=== PATIENT | female | born 2000 | race Caucasian/White ===

== ENCOUNTER 2025-02-19 17:19 | Emergency (ER) | payer MEDICAID ==
[~2025-02-19] VITALS: Ht 167.6 cm; Wt 48.9 kg
--- NOTE | 2025-02-19 17:59 | ED.PDOC ---
Back pain HPI HPI Comments PT REPORTS LEFT FOOT PAIN X 2 DAYS AFTER DROPPING A STOOL ON IT. SLIGHT SWELLING AND BRUISING TO FOOT. PT NOTES BEING 10 WEEKS . 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 Family History Family History: Reviewed,noncontributory to illness, Unknown Social History Smoker: Non-Smoker Alcohol: Denies ETOH Use Drugs: Denies Drug Use Lives In: Home Constitutional: denies: chills, diaphoresis, fatigue, fever, malaise, sweats, weakness, others EENTM: denies: blurred vision, double vision, ear bleeding, ear discharge, ear drainage, ear pain, ear ringing, eye pain, eye redness, hearing loss, mouth pain, mouth swelling, nasal discharge, nose bleeding, nose congestion, nose pain, photophobia, tearing, throat pain, throat swelling, voice changes, others Respiratory: denies: cough, hemoptysis, orthopnea, SOB at rest, shortness of breath, SOB with excertion, stridor, wheezing, others Cardiovascular: denies: chest pain, dizzy spells, diaphoresis, Dyspnea on exertion, edema, irregular heart beat, left arm pain, lightheadedness, palpitations, PND, syncope, others Gastrointestinal: denies: abdomen distended, abdominal pain, blood streaked bowels, constipated, diarrhea, dysphagia, difficulty swallowing, hematemesis, melena, nausea, poor appetite, poor fluid intake, rectal bleeding, rectal pain, vomiting, others Genitourinary: denies: abnormal vagina bleeding, burning, dyspareunia, dysuria, flank pain, frequency, hematuria, incontinence, pain, , vagina discharge, urgency, others Neurological: denies: dizziness, fainting, headache, left sided numbness, left sided weakness, numbness, paresthesia, pre-existing deficit, right sided numbness, right sided weakness, seizure, speech problems, tingling, tremors, weakness, others Musculoskeletal: reports: joint pain, joint swelling; denies: back pain, gout, muscle pain, muscle stiffness, neck pain, others Integumetry: denies: bruises, change in color, change in hair/nails, dryness, laceration, lesions, lumps, rash, wounds, others Allergic/Immunocompromised: denies: Difficulty Healing, Frequent Infections, Hives, Itching, others Hematologic/Lymphatic: denies: anemia, blood clots, easy bleeding, easy bruising, swollen glands, others Endocrine: denies: excessive hunger, excessive sweating, excessive thirst, excessive urination, flushing, intolerance to cold, intolerance to heat, unexplained weight gain, unexplained weight loss, others Psychiatric: denies: anxiety, bipolar disorder, depression, hopeless, panic disorder, schizophrenia, sleepless, suicidal, others Physical Exam General Appearance: No Apparent Distress, Normal HEENT: Pharynx Normal Neck: Full Range of Motion, Non-Tender Respiratory: Lungs Clear, No Respiratory Distress, Normal Breath Sounds Cardiovascular: No Edema, No JVD, No Murmur, No Gallop, Normal Peripheral Pulses, Regular Rate/Rhythm Breast Exam: Deferred Gastrointestinal: Non Tender, Soft Genitalia: Deferred Pelvic: Deferred Rectal: Deferred Extremities: Normal capillary refill, Normal inspection, Normal range of motion, Non-tender, No pedal edema Musculoskeletal : Location: Left Extremity Location: Foot Apperance: Normal Neurologic: Alert, No Motor Deficits, Normal Affect, Normal Mood, No Sensory Deficits Cerebellar Function: Normal Reflexes: Normal Skin: Dry, Normal Color, Warm Lymphatic: No Adenopathy Was a procedure done? Was a procedure done?: No Back Pain Differential Dx Differential Diagnosis: Fracture, Musculoskeletal Pain X-Ray, Labs, Meds, VS Vital Signs Date Time Temp Pulse Resp B/P (MAP) Pulse Ox O2 Delivery O2 Flow Rate FiO2 02/19/25 17:39 98.8 115 17 110/58 (75) 97 98.8 Current Medications Medications (Trade) Dose Ordered Sig/Ning Route Start Time Stop Time Status Last Admin Acetaminophen (Tylenol Tablet Or Capsule) 1,000 mg ONCE ONCE PO 02/19/25 18:45 02/19/25 18:46 DC 02/19/25 19:02 X-Ray, Labs, Meds, VS Comment EXAMINATIONS: 3 views of the left foot CLINICAL HISTORY: injury/swelling/pain COMPARISON: None Findings and impression: Comminuted, mildly displaced fracture of the 1st metatarsal diaphysis. No other grossly displaced fractures or dislocations are evident on the provided views. No sizable, radiopaque foreign bodies noted. PATIENT PLACED IN SPLINT CRUTCHES PROVIDED. ADVISED NO WEIGHT-BEARING UNTIL FOLLOW UP WITH [facility]TH[facility]. [id number] TYLENOL NEEDED FOR THE PAIN PER LABELED DOSING INSTRUCTIONS. ADVISED ON RICE. ADVISED TO FOLLOW UP WITH PCP FOR REFERRAL TO [facility] LEAVE SPLINT ON UNTIL FOLLOWING UP WITH [facility]. ER RETURN PRECAUTIONS GIVEN PATIENT INDICATES UNDERSTANDING AGREES WITH DISCHARGE PLAN OF CARE. Time of 1ST Reevaluation: 17:58 Reevaluation 1ST: Unchanged Time of 2ND Reevaluation: 18:44 Reevaluation 2ND: Improved Patient Education/Counseling: Diagnosis, Treatment, Prognosis, Need For Follow Up Family Education/Counseling: No Family Present SEPSIS Sepsis Screen Date sepsis recognized/suspect: Feb 19, 2025 Time Sepsis recognized/suspect: 1729 Recent Procedure: No On Antibiotic Therapy: No Respiratory Rate >20: No Heart Rate >90: No Temp<36 C (96.8 F) or >38.3 C: No SBP <90 or MAP <65 mmHG: No New Acute Mental Status Change: No Is the patient on CPAP, BIPAP,: No Physician Orders L Foot 3 View Xray (02/19/25 17:54) Apply Ice To Affected Area (02/19/25 18:03) Splints (02/19/25 ) Crutches And Crutch Training (02/19/25 18:31) Vital Signs Date Time Temp Pulse Resp B/P (MAP) Pulse Ox O2 Delivery O2 Flow Rate FiO2 02/19/25 17:39 98.8 115 17 110/58 (75) 97 98.8 Medications Medications Dose Ordered Sig/Ning Route Start Time Stop Time Status Last Admin Dose Admin Acetaminophen 1,000 mg ONCE ONCE PO 02/19/25 18:45 02/19/25 18:46 DC 02/19/25 19:02 Departure 1 Departure Time of Disposition: 18:43 Impression: Primary Impression: Fracture of first metatarsal bone of left foot Qualified Codes: S92.312A - Displaced fracture of first metatarsal bone, left foot, initial encounter for closed fracture Disposition: 01 HOME / SELF CARE / HOMELESS Condition: Stable Discharged With: Self Critical Care Note Critical Care Time?: No Stability Stability form required: OLIVIA Coronado Feb 19, 2025 17:58
[2025-02-19] MEDS: IBUPROFEN 600 MG TAB PO ONE (18:19)
--- NOTE | 2025-02-19 18:40 | DVH ---
EXAMINATIONS: 3 views of the left foot CLINICAL HISTORY: injury/swelling/pain COMPARISON: None Findings and impression: Comminuted, mildly displaced fracture of the 1st metatarsal diaphysis. No other grossly displaced fractures or dislocations are evident on the provided views. No sizable, r adiopaque foreign bodies noted.
[2025-02-19] MEDS: ACETAMINOPHEN 500 MG TAB or CAP PO ONE (19:02)
[2025-02-19 19:30] VITALS: BP 110/58; PULSE 115; RESP 17; TEMP 98.8; O2SAT 97
== END 2025-02-19 19:32 | disposition home or self-care (01) ==
LOC: ER 17:19
DX: O9A.211 Injury, poisoning and certain other consequences of external causes complicating pregnancy, first trimester (principal); S92.312A Displaced fracture of first metatarsal bone, left foot, initial encounter for closed fracture; Z3A.10 10 weeks gestation of pregnancy; X58.XXXA Exposure to other specified factors, initial encounter; Y93.89 Activity, other specified; Y92.89 Other specified places as the place of occurrence of the external cause; Y99.8 Other external cause status
CPT/HCPCS: 29515; 73630